=== PATIENT | female | born 1985 | race Caucasian/White ===

== ENCOUNTER 2023-04-06 08:05 | Outpatient (CLI) | payer BC, SELFPAY ==
--- NOTE | 2023-04-06 08:15 | CRLHL7_ITS ---
For Patients: As a result of the Cures Act, medical imaging exams and procedure reports are released immediately into your electronic medical record. You may view this report before your referring provider. If you have questions, please contact your health care provider. INDICATION: First trimester scan, establish dates. COMPARISON: None. TECHNIQUE: Real-time sin-scale imaging of the pelvis was performed. FINDINGS: Sonographic imaging demonstrates a single living intrauterine gestation. The embryo demonstrates a regular cardiac rate measuring 171 beats per minute. The embryo`s crown-rump length measurement of 2.8 cm corresponds to a gestational age of 9 weeks 4 days with a sonographic due date of 11/05/2023. There is a normal-appearing yolk sac. There are no gross abnormalities noted within the embryo at this early state of development. The gestational sac has a normal appearance. There is no evidence of a perigestational hemorrhage. The amount of fluid within the sac appears appropriate for gestational age. The cervix is closed. The myometrium appears normal. The ovaries are of normal size. There are no suspicious fluid collections noted in the cul-de-sac. IMPRESSION: Normal first trimester OB ultrasound exam. Gestational age calculated at 9 weeks 4 days with a sonographic due date of 11/05/2023. Dictated by Js Howe MD @ 04/06/2023 10:57:48 AM (Electronically Signed)
== END 2023-04-06 08:06 | disposition home or self-care (01) ==
LOC: US 08:07
PROVIDERS: Visit Provider Registered Nurse
DX: O09.521 Supervision of elderly multigravida, first trimester (principal); Z3A.09 9 weeks gestation of pregnancy
CPT/HCPCS: 76801; 82565; 82570; 84156; 84450; 84460; 84520; 86703; 86706; 86803; 86850; 86900; 86901; 87086; 87340; 87491; 87591

== ENCOUNTER 2023-04-06 09:43 | Outpatient (CLI) | payer BC, SELFPAY ==
[2023-04-06 16:45] LABS: Chlamydia DNA Amplified* NOT DETECTED (No Detected); GC DNA Amplified* NOT DETECTED (No Detected)
== END 2023-04-06 09:44 | disposition home or self-care (01) ==
PROVIDERS: Visit Provider Registered Nurse
DX: Z34.91 Encounter for supervision of normal pregnancy, unspecified, first trimester (principal); Z3A.09 9 weeks gestation of pregnancy
CPT/HCPCS: 82565; 82570; 84156; 84450; 84460; 84520; 86592; 86703; 86704; 86706; 86762; 86787; 86803; 86850; 86900; 86901; 87086; 87340; 87491; 87591

== ENCOUNTER 2023-04-06 17:20 | Emergency (ER) | payer BC, SELFPAY ==
[2023-04-06 17:26] VITALS: BP 117/87; PULSE 75; RESP 14; TEMP 36.4; O2SAT 100; BMI 25.8
--- NOTE | 2023-04-06 17:32 | ED_ITS ---
HPI - General Time Seen by Provider: 17:32 Date Seen: 04/06/23 Chief complaint: Vaginal Bleeding Stated complaint: Heavy bleeding 9 wks Time Seen by Provider: 04/06/23 17:31 Source: patient, RN notes reviewed and old records reviewed Mode of arrival: ambulatory Limitations: no limitations History of Present Illness HPI Narrative: 37-year-old female who presents today with vaginal bleeding. She is a 002 at 9+ 4 weeks by ultrasound done earlier today, IVF. Noted a gush of blood just prior to coming the emergency department, no abdominal pain or cramping, bleeding has mostly stopped now. Related Data Home Medications Medication Instructions Recorded Confirmed progesterone micronized 100 mg 1 insert vaginal ONCE 10/28/22 04/06/23 vaginal insert aspirin 81 mg capsule 81 mg PO QDAY 04/06/23 04/06/23 docosahexaenoic acid 200 mg mg PO DAILY 04/06/23 04/06/23 capsule ( DHA) estradiol 0.1 mg/24 hr semiweekly patch transdermal .every other day 04/06/23 04/06/23 transdermal patch progesterone 50 mg/mL 50 mg IM QDAY 04/06/23 04/06/23 intramuscular oil Allergies Allergy/AdvReac Type Severity Reaction Status Date / Time No Known Drug Allergies Allergy Verified 04/06/23 17:25 [facility] Medical History (Updated 04/06/23 @ 19:30 by Vince Jeffery MD) Hx gestational diabetes ?Z86.32 - Personal history of gestational diabetes (ICD-10) Fertility testing (11/2021) ?Z31.41 - Encounter for fertility testing (ICD-10) History of abnormal cervical Pap smear ?Z87.42 - Personal history of other diseases of the female genital tract (ICD-10) Seasonal allergies ?J30.2 - Other seasonal allergic rhinitis (ICD-10) Surgical History History of nasal surgery (1999) ?Z98.890 - Other specified postprocedural states (ICD-10) History of tonsillectomy (1995) ?Z90.89 - Acquired absence of other organs (ICD-10) History of 2 sections ?Z98.891 - History of uterine scar from previous surgery (ICD-10) Social History Smoking Status: Never smoker Non-prescribed substance use: denies use Little interest or pleasure in doing things: not at all Feeling down, depressed, or hopeless: not at all Exam Narrative: Exam Narrative: General: Well-developed and well-nourished, no acute distress Head: Atraumatic and normocephalic Eyes: Pupils are equal reactive, extraocular motions intact, conjunctiva clear ENT: External nose and ears are normal, posterior pharynx without erythema or exudate Neck: No midline cervical tenderness, full spontaneous range of motion the n deana, trachea midline, no adenopathy Heart: Regular rate and rhythm no murmurs or thrills Lungs: Clear to auscultation bilaterally without wheezes or crackles Abdomen: Soft, nontender, nondistended with active bowel sounds Musculoskeletal: No tenderness, deformity, or edema Neurologic: Awake, alert, and oriented x3, no gross focal neurologic deficits, cranial nerves intact as tested Psych: Mood and affect are appropriate Skin: No rashes Const: Vital Signs, click to edit/add: Vital Signs - 24 hr 04/06/23 17:26 Temperature 97.6 F Pulse Rate [Pulse Oximeter] 75 Respiratory Rate 14 Blood Pressure [Ri ght Upper Arm] 117/87 Pulse Oximetry 100 Oxygen Delivery Me thod Room Air Course Course ED Course: Patient seen examined, reviewed OB clinic note from today with patient was doing well, basic labs were done which were reassuring. Also reviewed ultrasound from earlier today when patient was found have an intrauterine at 9+ 4 weeks. Patient presents tonight with vaginal bleeding, says she had a gush of blood and none since. No abdominal pain or cramping. No abdominal tenderness on exam. As patient is having only scant bleeding now, will defer pelvic exam and ultrasound is ordered. Vital Signs Vital signs: Initial Vital Signs Temperature 97.6 F 04/06/23 17:26 Temperature Source Temporal Artery Scan 04/06/23 17:26 Pulse Rate 75 04/06/23 17:26 Pulse Rhythm Regular 04/06/23 17:26 Respiratory Rate 14 04/06/23 17:26 Blood Pressure 117/87 04/06/23 17:26 Blood Pressure Mean 97 04/06/23 17:26 Blood Pressure Position Sitting 04/06/23 17:26 Pulse Oximetry 100 04/06/23 17:26 Oxygen Delivery Method Room Air 04/06/23 17:26 Vital Signs Temperature 97.6 F 04/06/23 17:26 Pulse Rate 75 04/06/23 17:26 Respiratory Rate 14 04/06/23 17:26 Blood Pressure 117/87 04/06/23 17:26 Pulse Oximetry 100 04/06/23 17:26 Oxygen Delivery Method Room Air 04/06/23 17:26 Temperature 97.6 F 04/06/23 17:26 Pulse Rate 75 04/06/23 17:26 Respiratory Rate 14 04/06/23 17:26 Blood Pressure 117/87 04/06/23 17:26 Pulse Oximetry 100 04/06/23 17:26 Oxygen Delivery Method Room Air 04/06/23 17:26 MDM - OB/Uterine Contractions Lab Data Labs: Lab Results 04/06/23 Range/Units 18:22 Hgb 12.1 (12.0-16.0) gm/dL Discharge Plan Discharge Clinical Impression: Subchorionic hemorrhage in first trimester Patient Disposition: Home, Self-Care Instructions: Subchorionic Hemorrhage (ED) Additional Instructions: Call your OB provider in the morning to discuss follow-up Nothing per vagina (tampons, intercourse) until you follow-up with your OB provider Activity Level: Activity as Tolerated Discharge Diet: Regular Prescriptions: No Action progesterone micronized 100 mg insert 1 insert vaginal ONCE DHA 200 mg capsule PO DAILY estradiol 0.1 mg/24 hr patch semiweekly transdermal .every other day progesterone 50 mg/mL oil 50 mg IM QDAY aspirin 81 mg capsule 81 mg PO QDAY Follow Up/Referrals: Provider,Not a Local [Primary Care Provider] - Stand Alone Forms: MyHealth Info Instructions
--- NOTE | 2023-04-06 17:39 | CRLHL7_ITS ---
For Patients: As a result of the Cures Act, medical imaging exams and procedure reports are released immediately into your electronic medical record. You may view this report before your referring provider. If you have questions, please contact your health care provider. INDICATION: Bleeding in . COMPARISON: OB ultrasound 04/06/2023 at 8:21 a.m. TECHNIQUE: Real-time sin-scale imaging of the pelvis was performed. FINDINGS: Sonographic imaging demonstrates a single living intrauterine gestation. The embryo has a regular cardiac rate measuring 178 beats per minute. The embryo`s crown-rump length measurement of 2.7 cm corresponds to a gestational age of 9 weeks 4 days with a sonographic due date of 11/05/2023. There is a normal-appearing yolk sac. The placenta has not yet developed. There is a 4.0 x 0.8 x 4.1 cm subchorionic hemorrhage in the posterior uterus. Multiple other smaller areas of subchorionic hemorrhage surrounding the gestational sac. No free fluid in the cul-de-sac. IMPRESSION: 1. Single living intrauterine gestation with crown rump length 2.7 cm which corresponds to a gestational age of 9 weeks 4 days with a sonographic due date of 11/05/2023. 2. Moderate sized subchorionic hemorrhage in the posterior uterus and multiple other smaller areas of subchorionic hemorrhage surrounding the gestational sac. Dictated by Andie Jiang MD @ 04/06/2023 7:04:18 PM (Electronically Signed)
[2023-04-06 18:28] LABS: Hemoglobin* 12.1 gm/dL (12.0-16.0)
== END 2023-04-06 19:33 | disposition home or self-care (01) ==
PROVIDERS: Emergency Provider Family Medicine
DX: O20.9 Hemorrhage in early pregnancy, unspecified (principal); Z3A.09 9 weeks gestation of pregnancy
CPT/HCPCS: 36415; 76801; 84702; 85018; 99284

== ENCOUNTER 2023-08-19 08:29 | Outpatient (REF) | payer BC, SELFPAY | END 2023-08-19 08:30 | disposition home or self-care (01) | LOC: NFLDREF 08:29 | PROVIDERS: Visit Provider Obstetrics & Gynecology | DX: Z34.90 Encounter for supervision of normal pregnancy, unspecified, unspecified trimester (principal) | CPT/HCPCS: 86592 ==

== ENCOUNTER 2023-09-30 14:02 | Outpatient (CLI) | payer BC, SELFPAY | END 2023-09-30 14:03 | disposition home or self-care (01) | LOC: NFLDREF 10-01 05:39 | PROVIDERS: Visit Provider Obstetrics & Gynecology | DX: Z34.93 Encounter for supervision of normal pregnancy, unspecified, third trimester (principal); Z3A.34 34 weeks gestation of pregnancy | CPT/HCPCS: 82728 ==

== ENCOUNTER 2023-10-13 10:25 | Outpatient (CLI) | payer BC, SELFPAY | END 2023-10-13 10:26 | disposition home or self-care (01) | LOC: NFLDREF 10-21 07:45 | PROVIDERS: Visit Provider Obstetrics & Gynecology | DX: Z34.92 Encounter for supervision of normal pregnancy, unspecified, second trimester (principal); Z3A.28 28 weeks gestation of pregnancy | CPT/HCPCS: 87081; 87653 ==

== ENCOUNTER 2023-11-01 05:17 | Inpatient (IN) | payer BC, SELFPAY ==
[2023-11-01] VITALS (38 sets, daily range): BP systolic 105–126; BP diastolic 61–89; PULSE 60–125; RESP 12–18; TEMP 36.4–36.9; O2SAT 96–99; BMI 31.9
[2023-11-01 06:03] LABS: Hemoglobin* 10.1 gm/dL (12.0-16.0)
[2023-11-01] MEDS: LACTATED RINGERS 1000 ML 1,000 ML 900 ML IV (06:13)
--- NOTE | 2023-11-01 07:14 | P.PCN_ITS ---
Procedure Note Time Seen by Provider: 08:12 Date Seen: 11/01/23 Date of procedure: 11/01/23 Will [facility] bill your pro fee for this procedure?: Yes Procedure: Preoperative diagnosis: 38-year-old 3 para 2001 at 38 and 6/7 weeks admitted for a scheduled repeat low transverse section. Postoperative diagnosis: Same Procedure: Repeat low-transverse section. Anesthesia: Spinal Surgeon: Nereida Fraga MD Operations Forester: TIFFANIE Adame Quantitative blood loss: 672 mL IVF: 2000 mL UOP: 20 mL Drain(s): Montoya to gravity. Specimen: None Findings: A live male infant was delivered from the direct OA position at 7:38 a.m. Apgars were 8 at 1 min and 9 at 5 min, respectively. weight: 9 lb 10 oz. Nuchal cord(s): No. The placenta was delivered spontaneously and complete at 7:40 a.m. Amniotic fluid: 5 clear. Normal uterus, fallopian tubes and ovaries were noted. Other findings: no abnormal findings. Very minimal adhesions. Procedure: Renetta was taken to the OR where spinal anesthetic was found be adequate. A Montoya catheter was placed. The patient was then placed in the dorsal supine position with a leftward tilt. She was then prepped and draped in a normal sterile manner. A Pfannenstiel skin incision was made and carried through sharply to the underlying layer of fascia. Fascia was incised in the midline and this incision carried laterally with Oden scissors. The superior aspect of fascial incision was grasped with Karla clamps, tented up, and the rectus muscles dissected off with a combination of blunt and sharp dissection. The inferior aspect of the fascial incision was not dissected. The rectus muscles were in the midline. The peritoneum was entered bluntly. This opening was extended bluntly. An Eleuterio-O self-retaining retractor was placed. A bladder flap was not created. Uterus was incised in a low transverse manner in the midline. This incision carried laterally with blunt pressure on the inferior and superior aspects of the uterine incision. The amniotic sac was ruptured. The infant's not over head and body were delivered atraumatically. The was shown to the patient and her support person. The umbilical was clamped and cut immediately/after a 30-60 second delay. The infant was then handed to waiting nursing staff. The placenta was delivered spontaneously. The uterus was cleared of clots and debris. The uterine incision was re-approximated with the uterus in vivo. The 1st layer using 0-Vicryl in a running, locked manner. The 2nd layer using 0-Monocryl in a running, vertical, imbricating layer. Additional sutures needed for hemostasis: No. Excellent hemostasis was confirmed. The Eleuterio retractor was removed. The rectus muscles were reapproximated with 3-0 Vicryl vertical mattress sutures. The rectus muscles were then closely inspected to verify hemostasis. Hemostasis was obtained with bipolar cautery. The fascia was then reapproximated using 0-Maxon loop in a running manner. The subcutaneous tissue was then irrigated with saline and hemostasis obtained with bipolar cautery. The subcutaneous tissue was reapproximated using 3-0 plain gut in a running manner. The skin was reapproximated using 4-0 Monocryl in a running subcuticular manner. Exophin skin adhesive and a Methiplex dressing were applied. The patient tolerated this procedure well. Sponge, lap and instrument counts were correct x2 active to the procedure. Patient was taken to the recovery area in stable condition. The patient received 2 g of IV Ancef prior to skin incision.
--- NOTE | 2023-11-01 07:14 | W.PM.H&PU ---
History & Physical Update History & Physical Update H&P Reviewed and patient assessed: No changes noted
[2023-11-01] MEDS: CEFAZOLIN 2 GM INJ IVP (07:20)
[2023-11-01] MEDS: KETOROLAC 30 MG/ML inj IVP ×3 (08:09→20:43)
--- NOTE | 2023-11-01 08:42 | W.ANESCHARGE ---
Anesthesia Charges Start Date/Time Anesthesia Start Date: 11/01/23 Anesthesia Start Time: 07:10 Stop Date/Time Anesthesia Stop Date: 11/01/23 Anesthesia Stop Time: 08:33
[2023-11-01] MEDS: ONDANSETRON 2 MG/ML inj 4 MG IV (10:01)
--- NOTE | 2023-11-01 11:28 | W.ANESCHARGE ---
Anesthesia Charges Start Date/Time Anesthesia Start Date: 11/01/23 Anesthesia Start Time: 07:10 Stop Date/Time Anesthesia Stop Date: 11/01/23 Anesthesia Stop Time: 08:33
--- NOTE | 2023-11-01 11:28 | W.PM.NB ---
Nerve Block Nerve Block Time Seen by Provider: 08:25 Date Seen: 11/01/23 Type of block requested by surgeon for post-operative analgesia: TAP Time out performed: Yes Verification of patient name: Yes Verification of date of : Yes Site marking: site marked Name of person performing procedure: Julian Continuous monitoring Was continuous monitoring of O2 sat, B/P, teletypesetter monitor, recorded every 15 minutes?: Yes Procedure Checklist: sterile prep, needles and gloves Ultrasound guided. Images saved: Yes Medications given in 5ml increments after negative aspiration: Marcaine %: 0.25 mL: 30 Needle gauge: 20 and Exparel mL: 10 Patient tolerated procedure well: Yes Additional comments: Needle noted between internal oblique and transversus abdominus. Local spread visualized Block Charges Block Charge (with Pro Fee): TAP Bilateral Use of Ultrasound Machine for Block: Yes- US Guidance/pain block
[2023-11-01] MEDS: LACTATED RINGERS 1000 ML 1,000 ML 125 ML IV (13:11)
[2023-11-01] MEDS: SODIUM CHLORIDE 0.9 % (FLUSH) 10 ML SYRINGE IVF (14:42)
[2023-11-01] MEDS: LACTATED RINGERS 1000 ML 1,000 ML 925 ML IV (17:09)
[2023-11-01] MEDS: ACETAMINOPHEN 500 MG TABLET 1000 MG PO ×2 (17:12→23:32)
[2023-11-02] VITALS (10 sets, daily range): BP systolic 105–124; BP diastolic 68–84; PULSE 66–76; RESP 16–18; TEMP 36.7–36.8; O2SAT 96–98
[2023-11-02] MEDS: KETOROLAC 30 MG/ML inj IVP ×3 (02:08→15:29)
[2023-11-02] MEDS: ACETAMINOPHEN 500 MG TABLET 1000 MG PO ×2 (05:26→22:36)
--- NOTE | 2023-11-02 07:55 | P.OBPN_ITS ---
OB - PN:Subj Subjective Date Seen: 11/02/23 Patient comments OB post-: no complaints [place] status: (low blood sugar issues) Narrative: Renetta is a 38 y.o. who was admitted to L & D for repeat C/S.? She had an u ncomplicated repeat .? ? The patient feels well.? The pain is well controlled with current medications.? She has no new complaints.? She is breast feeding and reports things are going well.?Although baby has had some blood sugar issues and currently has an IV. the patient has done well.? Vitals have been stable.? She has remained afebrile.? Has a good appetite, is tolerating a general diet.? She is voiding without difficulty.? She is passing gas and has not had a bowel movement.? She is ambulating and denies any dizziness.? Has Small amount of rubra lochia.? OB - PN: Obj Exam Physical Exam: Vital signs: Temp Pulse Resp BP Pulse Ox O2 Del Method 98.1 F 66 18 105/68 96 Room Air 11/02/23 03:58 11/02/23 03:58 11/02/23 06:19 11/02/23 03:58 11/02/23 03:58 11/02/23 03:58 Narrative: GENERAL APPEARANCE:? normal affect, alert, no distress MOOD:? appropriate CHEST:? clear to auscultation HEART:? regular rate and rhythm ABDOMEN:? soft, non-tender the uterine fundus is firm At Umbilicus, Midline and is appropriate for the stage of recovery. EXTREMITIES:? normal and no edema Incision: Dressing clean dry intact, due to be removed today. Urinary Catheter Management: Urethral: Cath placed during this visit: yes, but has since been removed by the nurse Reason for continuing: decision to DC catheter Insertion date: 11/01/23 Insertion time: 07:20 Removal date: 11/01/23 Removal time: 23:55 OB - PN: Obj Data Labs Labs: Laboratory Results - last 24 hr 11/02/23 06:09 Hgb 8.0 L OB - PN: A/P Delivery Assessment and Plan (1) Status post repeat low transverse section: Status: Acute (2) care and examination immediately after delivery: Status: Acute (3) Lactating mother: Status: Acute Plan day: 1 Plan: routine care Comments: Assessment/Plan?G 3 P 3 status post uncomplicated repeat .? ?? 1.? Continue route PP cares? 2.? .? May see if desired? 3.? Anticipate discharge home tomorrow or the following day per pt preference? 4.? Acute anemia.? Iron supplement ordered?
[2023-11-02] MEDS: IBUPROFEN 600 MG TABLET PO (19:44)
[2023-11-03 00:17] LABS: Rapid Plasma Reagin (RPR) Non Reactive (Non Reactive)
[2023-11-03 00:39] VITALS: BP 118/75; PULSE 72; RESP 16; TEMP 36.8
[2023-11-03] MEDS: IBUPROFEN 600 MG TABLET PO ×2 (04:06→09:57)
[2023-11-03] MEDS: ACETAMINOPHEN 500 MG TABLET 1000 MG PO ×2 (06:44→12:51)
[2023-11-03 08:00] VITALS: BP 119/78; PULSE 66; RESP 16; TEMP 36.7; O2SAT 98
--- NOTE | 2023-11-03 09:02 | P.DS_ITS ---
DS: Providers Provider Date Seen: 11/03/23 Date of admission: 11/01/23 05:17 Primary care physician: Not a Local Provider Admitting Clinician: Nereida Fraga MD Attending Physician on discharge: Anupama Pabon CNM DS: Diagnosis Discharge Diagnosis (1) care and examination immediately after delivery: Status: Acute (2) Lactating mother: Status: Acute (3) Status post repeat low transverse section: Status: Acute Exam Narrative: Exam Narrative: GENERAL APPEARANCE:? normal affect, alert, no distress MOOD:? appropriate CHEST:? clear to auscultation HEART:? regular rate and rhythm ABDOMEN:? soft, non-tender the uterine fundus is At Umbilicus, Midline and is appropriate for the stage of recovery. LOCHIA: Scant EXTREMITIES:? normal and trace edema INCISION: Healing well, small area of erythema on right edge of incision, otherwise no surrounding erythema, abnormal induration or discharge Const: Vital Signs, click to edit/add: Vital Signs - 24 hr 11/02/23 09:47 11/02/23 17:50 11/03/23 00:39 Temperature 98.2 F 98.2 F Pulse Rate [Pulse Oximeter] 76 72 Respiratory Rate 18 16 Blood Pressure [Le ft Arm] 121/82 124/84 118/75 Pulse Oximetry 98 Oxygen Delivery Me thod Room Air 11/03/23 08:00 Temperature 98.1 F Pulse Rate [Pulse Oximeter] 66 Respiratory Rate 16 Blood Pressure [Le ft Arm] 119/78 Pulse Oximetry 98 Oxygen Delivery Me thod Room Air Documenting provider has reviewed patient's vital signs: yes Common normals: no apparent distress OB - DS: Summary Hospital Course Hospital Course: Renetta is a 38 y.o. G 3 P 3 who was admitted to L & D for repeat c/s. ?She had a section that was uncomplicated. The patient feels well. ?The pain is well controlled with current medications. ?She has no new complaints. ?She is breast feeding and reports things are going well. the patient has done well.? Vitals have been stable.? She has remained afebrile.? Has a good appetite, is tolerating a general diet. ?She is voiding without difficulty.? She is passing gas and has not had a bowel movement.? She is ambulating and denies any dizziness.? Has small amount of rubra lochia. Problems: Anemia plan: Discharge home with baby. Follow up in 2 weeks and 6 weeks. , may see if needed Hgb 8.0. Iron supplement ordered orally every other day Peripartum Data delivery method: Repeat Section Laceration description: None Procedures: Procedures Operation Date: 11/01/23 07:15 Actual Procedure Side Surgeon p Repeat low transverse Section Not Applicable Nereida Fraga MD complications: none [place] Infant Gender: Male Infant Discharge Plan: Home Status at Discharge Functional status at discharge: independent ambulation Overall status at discharge: patient is progressing back to baseline Time Spent with Patient Time attestation: Total time spent providing and/or coordinating discharge services: Time spent: Less than 30 minutes Discharge Plan Discharge Disposition: Home, Self-Care Date of Admission: 11/01/23 05:17 Primary Care Provider: Provider,Not a Local Condition: Stable Anticipated Discharge Date/Time: 11/03/23 12:00 Discharge Medications: New acetaminophen 500 mg Tablet 1,000 mg PO Q6H PRN (Reason: Pain) Qty: 0 0RF docusate sodium 100 mg Capsule 100 mg PO BID PRNQty: 90 0RF ibuprofen 600 mg Tablet 600 mg PO Q6H PRN (Reason: Pain) Qty: 60 0RF Continued DHA 200 mg capsule 200 mg PO DAILY ferrous sulfate 325 mg (65 mg iron) tablet,delayed release (DR/EC) 325 mg PO Q OTHER DAY Qty: 90 3RF fexofenadine [Juany Allergy] 60 mg tablet 60 mg PO QDAY Discharge Orders: Discharge Order (Routine); Ordered 11/03/23 Ordered By: Anupama Pabon Patient Education: OB Over the Counter Medication Information, OB /Breast Feeding Additional Instructions: Discharge instructions were reviewed with the patient including signs and symptoms of infection and home going medications Lifting Restrictions: 20 pounds for 6 weeks No not submerge incision under water X 2 weeks? Nothing vaginally for 6 weeks: no tampons or intercourse Do not drive while taking narcotic pain medication(s) Off Work or School for 8 weeks 2-week visit: incision check, discuss feeding concerns, review control options and screen for anxiety/depression. 6-week visit for an annual exam. consultation services are available to all mothers and babies for the first year after delivery.? To make an appointment, please call [phone]. Activity Level: Activity as Tolerated Discharge Diet: Regular Follow Up Appointments: [facility] [Provider Group] Forms: [employer] Info Instructions
== END 2023-11-03 15:46 | disposition home or self-care (01) | DRG 540 ==
PROVIDERS: Admitting Provider Obstetrics & Gynecology; Visit Provider Obstetrics & Gynecology
PROC: 10D00Z1 Extraction of Products of Conception, Low, Open Approach (ICD-10-PCS; CPT 59514; principal; 2023-11-01 07:15)
DX: O34.211 Maternal care for low transverse scar from previous cesarean delivery (principal); Z3A.38 38 weeks gestation of pregnancy; Z37.0 Single live birth; G89.18 Other acute postprocedural pain; O99.013 Anemia complicating pregnancy, third trimester; D64.9 Anemia, unspecified; O99.02 Anemia complicating childbirth
CPT/HCPCS: 01961; 36415; 64488; 76942; 85018; 86592; 86850; 86900; 86901; 94761; A9270; C9290; J0665; J0690; J1885; J2274; J2371; J2405; J2590; J7120

== ENCOUNTER 2023-11-09 08:22 | Outpatient (CLI) | payer BC, SELFPAY ==
--- NOTE | 2023-11-09 17:00 | P.LACCB_ITS ---
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 Bergman Jaundice: No (resolved) Reason for Consult Reason for Consult: not aggressive at the breast, slow to gain weight Past Experience Past Experience: Yes (nursed her two older children for a year ea ) Current Frequency of Day Feedings: about every 2.5 hours around the clock Both Breasts: Yes (only if he doesn't really nurse on the first side) Suck: not aggressive Latch: fairly wide Pumping Pumping: No (uses her Haakaa on occasion) Quantity Pumped: about 1 oz Supplementing EMB Supplement: No Formula Supplement: No Baby Elimination Number of Wet Diapers a Day: with almost every feeding Number of BM a Day: increasing, dark yellow Breast/Nipple Condition Breast Information: WNL Maternal Nipple Condition - Left: Common Nipple (elastic?, scabbed in the center) Maternal Nipple Condition - Right: Common Nipple (elastic?) Sore Nipples: Yes (left side) Onsite Pre-Feed weight: 3.894 kg Post-Feed weight: 3.936 kg Milk Transferred (mL): 42 Assessments/Interventions Assessments/Interventions: Met with mom and this now one week old ex- term LGA baby for consult. Mom reports baby has no interest in nursing and she has a hard time enticing him to stay latched unless her let-down occurs right away. She also reports having difficulty getting a comfortable latch on the left side. She's worried about his jaundice level so has been waking him to nurse about every 2.5 hours around the clock. States when he does start nursing she'll offer one side. When he's sleepy/uninterested she'll offer both sides. Feedings are lasting 15 - 30 minutes. She hasn't started pumping, but will use her Haakaa on occasion and gets about 1 oz total. Baby has not yet been supplemented. Breasts WNL- rounded lower quadrants, the left is a little smaller than the right but mom doesn't think it produces as much. Nipples are everted and may be a little elastic. No damage on the right, the left is scabbed in the center. Baby has gained 17 grams/day since his NB visit on 11/06 and is now 11% below BW (per provider note, the BW may not be accurate). Per mom there was no cephalohematoma/caput at delivery and baby seems to have equal ROM when turning his head and moving his extremities. His palate is WNL. His upper frenulum is a little tight as the gums en when the lips are flanged. He is not aggressive when sucking on a finger. His tongue has good lateral movement to the right, but more difficulty lateralizing to the left. The lower frenulum appears to be WNL. Mom latched baby to the left side and the latch looked a little shallow, baby wasn't really positioned tummy to tummy. When mom was coached to remove her bra so there was nothing between her and baby, support him in the cross cradle hold, aim her nipple for his nose, and bring him to her quickly when he opened wide she was able to get a little deeper latch and reported that it was more comfortable. Baby was not aggressive on the breast and needed a lot of stimulation to suckle nutritively. After about 10 minutes, mom was shown how to unlatch him and offered the right side. Using the ideas mentioned she was able to get a deep latch and was comfortable. Baby didn't need quite as much stimulation on this side and nursed 10 - 15 minutes; swallowing was heard on this side. When he came off mom roused him and offered the left side again. He was a little more aggressive and nursed about 5 minutes. He transferred 42 ml. Mom was measured and a flange size suggested. Reviewed with mom that baby transferred an appropriate amount for his age. Plan: 1. Suggested that mom start to nurse baby based off of his feeding cues as she may be trying too frequently and he's not hungry. Instructed her not to go past 3 - 3.5 hours however. Also suggested that she offer both sides at each feeding and not use the Haakaa for now. Use the ideas above to get the widest latch possible, bother him to keep him awake and nutritively suckling and that can include switch nursing. 2. Suggested that b/c he's not very aggressive, she pump just 1 - 2 times/day for now. 3. No need to give supplement unless he seems hungry after nursing and she doesn't want to put him back to breast. 4. Suggested she try a different nipple cream, but that a better latch should resolve the discomfort and scab on the left nipple. 4. Will f/u on 11/10 for a pre and post feeding weight. Will show her exercises to strengthen his suck and to help with lateralization, could also suggest body work therapist. Meds Home Medications and Allergies Home Medications Medication Instructions Recorded Confirmed Type docosahexaenoic acid 200 mg 200 mg PO DAILY 04/06/23 11/14/23 History capsule ( DHA) fexofenadine 60 mg tablet (Juany 60 mg PO QDAY 10/13/23 11/14/23 History Allergy) Allergies Allergy/AdvReac Type Severity Reaction Status Date / Time No Known Drug Allergies Allergy Verified 11/14/23 12:55
== END 2023-11-09 08:23 | disposition home or self-care (01) ==
LOC: OB LAC 08:23
PROVIDERS: Visit Provider Obstetrics & Gynecology
DX: Z39.1 Encounter for care and examination of lactating mother (principal)
CPT/HCPCS: G0463

== ENCOUNTER 2024-07-27 14:22 | Outpatient (CLI) | payer BC, SELFPAY | END 2024-07-27 14:23 | disposition home or self-care (01) | LOC: NFLDREF 14:24 | PROVIDERS: Visit Provider Obstetrics & Gynecology | DX: N92.0 Excessive and frequent menstruation with regular cycle (principal) | CPT/HCPCS: 84443 ==

== ENCOUNTER 2024-08-01 07:16 | Outpatient (CLI) | payer BC, SELFPAY | END 2024-08-01 07:17 | disposition home or self-care (01) | LOC: US 07:17 | PROVIDERS: Visit Provider Obstetrics & Gynecology | DX: N92.0 Excessive and frequent menstruation with regular cycle (principal); R93.89 Abnormal findings on diagnostic imaging of other specified body structures | CPT/HCPCS: 76830; 76856 ==

== ENCOUNTER 2024-09-11 06:03 | Day surgery (SDC) | payer BC, SELFPAY ==
[2024-09-11] VITALS (7 sets, daily range): BP systolic 107–120; BP diastolic 63–87; PULSE 50–77; RESP 14–16; TEMP 36.6–36.9; O2SAT 98–100; BMI 25.8
[2024-09-11] MEDS: LACTATED RINGERS 1000 ML 1,000 ML 100 ML IV (06:30)
[2024-09-11] MEDS: SODIUM CHLORIDE 0.9 % (FLUSH) 10 ML SYRINGE IVF (06:35)
[2024-09-11 06:37] LABS: Ur HCG Qualitative* Negative (Negative)
--- NOTE | 2024-09-11 07:16 | W.PM.H&PU ---
History & Physical Update History & Physical Update H&P Reviewed and patient assessed: No changes noted
--- NOTE | 2024-09-11 07:17 | PM.PROC ---
Procedure Note Time Seen by Provider: 08:00 Date Seen: 09/11/24 Date of procedure: 09/11/24 Will [facility] bill your pro fee for this procedure?: Yes Procedure: Preoperative diagnosis: 38 year-old 3 para 3 with menorrhagia and suspected polyp on ultrasound. Postoperative diagnosis: Same Procedure: Hysteroscopy, Dilation and Curettage using the Truclear incisor Anesthesia: Conscious sedation, paracervical block. Surgeon: Nereida Fraga MD Care Aide: None Estimated blood loss: 5 mL IV Fluid: 400 mL Specimen: Endometrial curettings to pathology. Findings: Exam under anesthesia: Uterus: Anteverted position, less than less than 10 week sized, mobile, with no masses or nodularity palpable. Uterus sounded to 10 cm. No adnexal masses or nodularity palpable. On hysteroscopy: No abnormalities noted, possible polypoid mass. Procedure: Renetta was taken to the operating operating room more conscious sedation was found to be adequate. The patient was placed on in the dorsal lithotomy position and an exam under anesthesia was performed with findings stated above. She was then prepped and draped in a normal sterile manner. A bivalve speculum was placed in the vagina. The cervix appears nulliparous. Otherwise no abnormalities. The paracervical block was placed using 0.5% Marcaine, 10 mL was injected at the 4 and 8 o'clock positions on the cervix. The anterior lip of the cervix was grasped with a long Allis clamp. The cervix dilated to Hegar 6. The uterus sounded to 10 cm. The Truclear hysteroscope was advanced into the uterus. A diagnostic hysteroscopy was performed with normal saline as the insufflation medium. Findings are stated above. The Truclear incisor was then advanced through the camera. The curettage was performed with the incisor over an approximately 3 minutes. The incisor was then removed. The endometrial cavity appeared normal. Saline deficit at the end of the procedure 420 mL. Total saline used 3660 mL. Nothing was needed for hemostasis. The hysteroscope, Allis clamp and speculum were removed from the vaginal canal. The patient tolerated the procedure well. Sponge, lap and instrument counts were correct x2 at the end of the procedure. The patient was taken to the recovery area in stable condition. The patient was given 30 mg of IV Toradol at the end of the procedure. Anesthesia: MAC Pathology: specimen obtained, sent to pathology Condition: stable Disposition: same day
[2024-09-11] MEDS: BUPIVACAINE 0.5% 30 ML INJECTION (07:40)
[2024-09-11] MEDS: KETOROLAC 30 MG/ML inj IVP (07:53)
--- NOTE | 2024-09-11 08:07 | W.ANESCHARGE ---
Anesthesia Charges Start Date/Time Anesthesia Start Date: 09/11/24 Anesthesia Start Time: 07:17 Stop Date/Time Anesthesia Stop Date: 09/11/24 Anesthesia Stop Time: 08:06 Coding CPT Codes CPT Codes: ANESTH HYSTEROSCOPE/GRAPH - 62878 ([id number]) P1 - NORMAL HEALTHY PATIENT, QK - CAPTAIN OF GUARDS 2-4 CNCRNT ANES PROC, QX - DYE HOUSE SUPERVISOR SVC W/ MED DIRECTION
--- NOTE | 2024-09-11 08:12 | W.ANESCHARGE ---
Anesthesia Charges Start Date/Time Anesthesia Start Date: 09/11/24 Anesthesia Start Time: 07:17 Stop Date/Time Anesthesia Stop Date: 09/11/24 Anesthesia Stop Time: 08:06 Coding CPT Codes CPT Codes: ANESTH HYSTEROSCOPE/GRAPH - 47316 ([id number]) QK - STOCK PLAN ADMINISTRATOR 2-4 CNCRNT ANES PROC, QX - IN HOME BABY SITTER SVC W/ MD MED DIRECTION, P1 - NORMAL HEALTHY PATIENT
== END 2024-09-11 09:16 | disposition home or self-care (01) ==
LOC: OR 06:04
PROVIDERS: Visit Provider Obstetrics & Gynecology
PROC: 0UDB8ZZ Extraction of Endometrium, Via Natural or Artificial Opening Endoscopic (ICD-10-PCS; CPT 58558; principal; 2024-09-11 07:15)
DX: N92.0 Excessive and frequent menstruation with regular cycle (principal); N84.0 Polyp of corpus uteri
CPT/HCPCS: 58558; 00952; 36415; 81025; 84702; 85018; 86850; 86900; 86901; 88305; C1782; J0665; J1885; J2250; J2405; J2704; J3490; J7120